=== PATIENT | female | born 2005 | race Caucasian/White ===

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

== ENCOUNTER 2025-06-13 12:41 | Outpatient (CLI) | payer BC, SELFPAY ==
[2025-06-13] VITALS (9 sets, daily range): BP systolic 117–129; BP diastolic 65–86; PULSE 85–99; RESP 18; TEMP 35.6; BMI 27.4
== END 2025-06-13 15:07 | disposition home or self-care (01) ==
LOC: OPOB 12:46 → OBGYN 12:47
PROVIDERS: Visit Provider Obstetrics & Gynecology
DX: O13.9 Gestational [pregnancy-induced] hypertension without significant proteinuria, unspecified trimester (principal); Z3A.00 Weeks of gestation of pregnancy not specified; M79.89 Other specified soft tissue disorders
CPT/HCPCS: 59025; 99211

== ENCOUNTER 2025-06-13 20:47 | Outpatient (CLI) | payer OTHER, BC, SELFPAY ==
[2025-06-13] VITALS (8 sets, daily range): BP systolic 117–133; BP diastolic 67–81; PULSE 78–89; BMI 27.8
[2025-06-13 21:53] LABS: Glucose Urine UA Negative (Normal); Nitrate Urine Negative (Negative); Specific Gravity, Urine 1.030 (1.005-1.030)
[2025-06-13 22:18] LABS: UA Slide Review UA Slide Review Perf
[2025-06-13] MEDS: cefTRIAXone 1,000 mg SDV 1000 MG IVP (23:06)
[2025-06-13] MEDS: NIFEdipine ER (24 hr) 30 mg Tablet PO (23:45)
[2025-06-14] VITALS (21 sets, daily range): BP systolic 102–137; BP diastolic 55–86; PULSE 74–111; RESP 16
[2025-06-14] MEDS: NIFEdipine ER (24 hr) 30 mg Tablet PO (00:43)
[2025-06-14] MEDS: betamethasone susp 6 mg/mL 5 mL 12 MG IM (04:06)
== END 2025-06-14 07:40 | disposition home or self-care (01) ==
LOC: OPOB 20:51 → OBGYN 20:52
PROVIDERS: Visit Provider Family Medicine
DX: O26.899 Other specified pregnancy related conditions, unspecified trimester (principal); Z3A.00 Weeks of gestation of pregnancy not specified; R10.9 Unspecified abdominal pain
CPT/HCPCS: 81001; 87086; J0696; J7120; J9999